=== PATIENT | female | born 1970 | race American Indian/Alaskan Native ===

== ENCOUNTER 2016-12-01 11:31 | Emergency (ER) | payer SELFPAY ==
--- NOTE | 2016-12-01 12:03 | Emergency Department Report ---
Chief Complaint: High BP Stated Complaint: DIZZY,BLURRED,TINGLING Time Seen by Provider: 12/01/16 11:58 - HPI History of Present Illness: 36-year-old female presents to ED complaining elevated blood pressure, dizziness , 2 days. She denies fever/chills/nausea/vomiting - ROS Review of Systems: As noted in HPI - Exam Vital Signs: Vital Signs 12/01/16 11:52 Temperature 98.4 F Pulse Rate 85 Respiratory 20 Rate Blood Pressure 162/102 O2 Sat by Pulse 100 Oximetry Physical Exam: GENERAL: Alert and oriented x3, no apparent distress, Normal Gait, atraumatic. LUNGS: Symetrical with respiration, No wheezing, no rales or crackles, CTAB. HEART: S1, S2 present, regular rate and rhythm without murmur, no rubs, no gallops. Non tender to palpation ABDOMEN: No organomegaly was noted,Positive bowel sounds, soft, and non- distended. . Nontender to palpation on all Quadrants, NO CVA tenderness. SKIN: Warm and dry, No lesions, No ulceration or induration present. MSE screening note: Focused history and physical exam performed. Due to findings the following was ordered: ED Medical Decision Making - Medical Decision Making Labs ordered. Patient's recent physician. Clonidine 0.1 ordered. Patient to the monitored in [facility] waiting area. ED Disposition for MSE Condition: Stable
[2016-12-01] MEDS ORDERED: TYLENOL PO ONE (12:05)
[2016-12-01] MEDS ORDERED: CATAPRES PO ONE (12:05)
[2016-12-01 13:20] LABS: Basophils % (Auto) 0.6 % (0.0-1.8); Eosinophils % (Auto) 1.1 % (0.0-4.3); Hematocrit 40.4 % (30.3-42.9); Hemoglobin 13.1 gm/dl (10.1-14.3); Mean Corpuscular HGB Conc 33 % (30-34); Mean Corpuscular Hemoglobin 30 pg (28-32); Mean Corpuscular Volume 92 fl (79-97); Platelet Count 360 K/mm3 (140-440); Red Cell Distribution Width 14.2 % (13.2-15.2); White Blood Count 11.8 K/mm3 (4.5-11.0)
[2016-12-01 13:26] LABS: Anion Gap 18 mmol/L; BUN/Creatinine Ratio 11.25; Blood Urea Nitrogen 9 mg/dL (7-17); Calcium 8.8 mg/dL (8.4-10.2); Carbon Dioxide 24 mmol/L (22-30); Chloride 104.6 mmol/L (98-107); Glucose 107 mg/dL (65-100); Potassium 4.7 mmol/L (3.6-5.0); Sodium 142 mmol/L (137-145)
[2016-12-01 13:31] LABS: INR 0.98 (0.87-1.13)
[2016-12-01 13:32] LABS: Partial Thromboplastin Time 28.2 Sec. (24.2-36.6)
[2016-12-01] MEDS ORDERED: MAGNESIUM SULFATE 2GM/50ML 2 GM/50 ML BAG IV ONE (17:31)
[2016-12-01] MEDS ORDERED: BENADRYL IV ONE (17:31)
[2016-12-01] MEDS ORDERED: FIORICET PO ONE (17:31)
[2016-12-01] MEDS ORDERED: REGLAN IV ONE (17:31)
--- NOTE | 2016-12-01 17:33 | Emergency Department Report ---
ED General Adult HPI - General Chief complaint: High BP Stated complaint: DIZZY,BLURRED,TINGLING Time Seen by Provider: 12/01/16 11:58 Source: patient, RN notes reviewed Mode of arrival: Ambulatory Limitations: No Limitations - History of Present Illness Initial comments: This is a 46-year-old female. She is previously unknown to me. She does not have a local primary care doctor. Past medical history includes rheumatoid arthritis. She may have a past medical history of hypertension but she is not certain. The patient presents to the ER today with a complaint of headache. The headache is global, throbbing and achy. It started over the weekend. It is not sudden or thunderclap in nature. Does not reach maximal intensity within an hour. Patient reports one to 2 headaches per month. She also complains of nonspecific dizziness which she cannot further clarify. She also complains of nonspecific binocular blurry vision over the weekend, which has since resolved. There is no weakness or numbness. There is no chest pain or shortness of breath. There is no ataxia. The patient thinks that she may have a history of hypertension, but is not certain. There is no loss of vision. -: Gradual Location: head Severity scale (0 -10): 10 Quality: aching Consistency: intermittent Improves with: none Worsens with: none Associated Symptoms: headaches, loss of appetite. denies: confusion, chest pain , cough, diaphoresis, fever/chills, malaise, nausea/vomiting, shortness of breath, syncope, weakness - Related Data Previous Rx's Medication Instructions Recorded Last Taken Type Ibuprofen [Motrin] 600 mg PO Q8H PRN #30 tablet 12/01/16 Unknown Rx Allergies Allergy/AdvReac Type Severity Reaction Status Date / Time No Known Allergies Allergy Unverified 12/01/16 11:56 ED Review of Systems ROS: Stated complaint: DIZZY,BLURRED,TINGLING Other details as noted in HPI Constitutional: denies: fever Eyes: vision change. denies: eye discharge ENT: denies: throat pain Respiratory: denies: cough Cardiovascular: denies: chest pain Gastrointestinal: denies: abdominal pain Genitourinary: denies: urgency, dysuria, discharge Musculoskeletal: denies: back pain, joint swelling, arthralgia Skin: denies: rash, lesions Neurological: headache. denies: weakness, paresthesias, abnormal gait, vertigo ED Past Medical Hx - Past Medical History Previous Medical History?: Yes Hx Hypertension: Yes Hx Asthma: Yes - Surgical History Past Surgical History?: Yes - Social History Smoking Status: Current Every Day Smoker Substance Use Type: None - Medications Home Medications: Home Medications Medication Instructions Recorded Confirmed Last Taken Type Ibuprofen [Motrin] 600 mg PO Q8H PRN #30 tablet 12/01/16 Unknown Rx ED Physical Exam - General Limitations: No Limitations General appearance: alert, in no apparent distress - Head Head exam: Present: atraumatic, normocephalic - Eye Eye exam: Present: normal appearance, PERRL, EOMI, other (visual acuity intact to finger counting, color perception, reading at a close distance). Absent: nystagmus - ENT ENT exam: Present: normal exam, normal orophraynx, mucous membranes moist, normal external ear exam - Neck Neck exam: Present: normal inspection, full ROM. Absent: tenderness, meningismus - Respiratory Respiratory exam: Present: normal lung sounds bilaterally. Absent: respiratory distress, wheezes, rales, rhonchi, stridor, chest wall tenderness, accessory muscle use, decreased breath sounds, prolonged expiratory - Cardiovascular Cardiovascular Exam: Present: regular rate, normal rhythm, normal heart sounds. Absent: bradycardia, tachycardia, irregular rhythm, systolic murmur, diastolic murmur, rubs, gallop - GI/Abdominal GI/Abdominal exam: Present: soft, normal bowel sounds. Absent: distended, tenderness, guarding, rebound, rigid, pulsatile mass - Extremities Exam Extremities exam: Present: normal inspection, full ROM, normal capillary refill. Absent: tenderness, pedal edema, joint swelling, calf tenderness - Back Exam Back exam: Present: normal inspection, full ROM. Absent: tenderness, CVA tenderness (R), CVA tenderness (L), muscle spasm, paraspinal tenderness, vertebral tenderness - Neurological Exam Neurological exam: Present: alert, oriented X3, normal gait (normal gait. Normal tandem gait. Negative Romberg examination. Negative pronator drift. Normal [id number].), other (Extraocular movements intact. Tongue midline. No facial droop. Facial sensation intact to light touch in the V1, V2, V3 distribution bilaterally. 5 and 5 strength in 4 extremities.. Sensation is intact to light touch in 4 extremities.). Absent: motor sensory deficit - Psychiatric Psychiatric exam: Present: normal affect, normal mood - Skin Skin exam: Present: warm, dry, intact, normal color. Absent: rash ED Course Vital Signs 12/01/16 12/01/16 12/01/16 11:52 12:43 16:30 Temperature 98.4 F Pulse Rate 85 80 Respiratory 20 20 18 Rate Blood Pressure 162/102 Blood Pressure 122/70 [Right] O2 Sat by Pulse 100 96 Oximetry ED Medical Decision Making - Lab Data Result diagrams: 12/01/16 12:44 12/01/16 12:44 Vital Signs 12/01/16 12/01/16 12/01/16 11:52 12:43 16:30 Temperature 98.4 F Pulse Rate 85 80 Respiratory 20 20 18 Rate Blood Pressure 162/102 Blood Pressure 122/70 [Right] O2 Sat by Pulse 100 96 Oximetry Lab Results 12/01/16 12/01/16 12/01/16 Range/Units 12:44 12:44 12:44 WBC 11.8 H (4.5-11.0) K/mm3 RBC 4.40 (3.65-5.03) M/mm3 Hgb 13.1 (10.1-14.3) gm/dl Hct 40.4 (30.3-42.9) % MCV 92 (79-97) fl MCH 30 (28-32) pg MCHC 33 (30-34) % RDW 14.2 (13.2-15.2) % Plt Count 360 (140-440) K/mm3 Lymph % (Auto) 23.3 (13.4-35.0) % [place] % (Auto) 9.8 H (0.0-7.3) % Eos % (Auto) 1.1 (0.0-4.3) % Baso % (Auto) 0.6 (0.0-1.8) % Lymph # 2.7 (1.2-5.4) K/mm3 [place] # 1.2 H (0.0-0.8) K/mm3 Eos # 0.1 (0.0-0.4) K/mm3 Baso # 0.1 (0.0-0.1) K/mm3 Seg Neutrophils % 65.2 (40.0-70.0) % Seg Neutrophils # 7.7 (1.8-7.7) K/mm3 PT 13.5 (12.2-14.9) Sec. INR 0.98 (0.87-1.13) APTT 28.2 (24.2-36.6) Sec. Sodium (137-145) mmol/L Potassium (3.6-5.0) mmol/L Chloride (98-107) mmol/L Carbon Dioxide (22-30) mmol/L Anion Gap mmol/L BUN (7-17) mg/dL Creatinine (0.7-1.2) mg/dL Estimated GFR ml/min BUN/Creatinine Ratio % Glucose (65-100) mg/dL Calcium (8.4-10.2) mg/dL Troponin T (0.00-0.029) ng/mL HCG, Qual Negative (Negative) 12/01/16 12/01/16 Range/Units 12:44 17:05 WBC (4.5-11.0) K/mm3 RBC (3.65-5.03) M/mm3 Hgb (10.1-14.3) gm/dl Hct (30.3-42.9) % MCV (79-97) fl MCH (28-32) pg MCHC (30-34) % RDW (13.2-15.2) % Plt Count (140-440) K/mm3 Lymph % (Auto) (13.4-35.0) % [place] % (Auto) (0.0-7.3) % Eos % (Auto) (0.0-4.3) % Baso % (Auto) (0.0-1.8) % Lymph # (1.2-5.4) K/mm3 [place] # (0.0-0.8) K/mm3 Eos # (0.0-0.4) K/mm3 Baso # (0.0-0.1) K/mm3 Seg Neutrophils % (40.0-70.0) % Seg Neutrophils # (1.8-7.7) K/mm3 PT (12.2-14.9) Sec. INR (0.87-1.13) APTT (24.2-36.6) Sec. Sodium 142 (137-145) mmol/L Potassium 4.7 (3.6-5.0) mmol/L Chloride 104.6 (98-107) mmol/L Carbon Dioxide 24 (22-30) mmol/L Anion Gap 18 mmol/L BUN 9 (7-17) mg/dL Creatinine 0.8 (0.7-1.2) mg/dL Estimated GFR > 60 ml/min BUN/Creatinine Ratio 11.25 % Glucose 107 H (65-100) mg/dL Calcium 8.8 (8.4-10.2) mg/dL Troponin T < 0.010 < 0.010 (0.00-0.029) ng/mL HCG, Qual (Negative) - EKG Data -: EKG Interpreted by Me EKG shows normal: sinus rhythm, axis - EKG Data When compared to previous EKG there are: previous EKG unavailable 12/01/16 19:54 normal sinus, 83 bpm, normal axis, QTC 470 ms, incomplete right bundle branch block, abnormal EKG, not morphologically consistent with stemi - Radiology Data Radiology results: report reviewed, image reviewed Noncontrast CT scan of the brain is negative. CT angiogram of the head and neck negative - Medical Decision Making Differential diagnosis: Migraine headache, cluster headache, tension headache, incidental hypertension/elevated blood pressure Assessment and plan: 46-year-old female with complaint of headache, hypertension , dizziness. She is afebrile, with reassuring vital signs with the exception of hypertension. She has a GCS of 15, with an NIH score of 0, no visual field cuts, has a visual acuity of 20/20, and walks with a steady gait. A noncontrast CT scan of the brain was negative, and a CT and exam of the head and neck were also negative. The patient's history is not consistent with subarachnoid hemorrhage. She felt much improved after pain medication. She was observed in the ER for a prolonged. At time without decompensation, and reported that she was feeling much better after her symptomatically therapy. She is going to follow up with outpatient primary care doctor, and I have given her numerous names, phone numbers, addresses. Critical care attestation.: If time is entered above; I have spent that time in minutes in the direct care of this critically ill patient, excluding procedure time. ED Disposition Clinical Impression: Headache, Elevated blood pressure reading Disposition: TO HOME OR SELFCARE Is pt being admited?: No Does the pt Need Aspirin: No Condition: Stable Instructions: Acute Headache (ED), Hypertension (ED) Additional Instructions: Take the pain medication as directed. Follow-up with her outpatient primary care doctor within the next 2-3 weeks. Please note that hypertension/elevated blood pressure may cause complications such as stroke, heart attack, disability , , paralysis, loss of quality of life. Therefore, follow up with any listed primary care doctors within the recommended timeframe. Return to the ER right away with new pain, worsened pain , migration of pain, fevers, chills, confusion, chest pain, intractable nausea or vomiting, inability to tolerate liquid feeds. Prescriptions: Ibuprofen [Motrin] 600 mg PO Q8H PRN #30 tablet PRN Reason: Pain Referrals: PRIMARY CAREMD [Primary Care Provider] - 3-5 Days AMINATA YORK MD [Staff Physician] - 3-5 Days BAKARI NEAL MD [Staff Physician] - 3-5 Days
[2016-12-01 17:35] VITALS: BP 122/70
[2016-12-01] MEDS ORDERED: NACL ONE (17:57)
--- NOTE | 2016-12-01 19:01 | Cat Scan Report ---
FINAL REPORT EXAM: CT HEAD/BRAIN WO CON HISTORY: peña htn resolved binocular blurry vision TECHNIQUE: Noncontrast serial axial images from skull base to vertex. PRIORS: None. FINDINGS: There is no mass effect or midline shift. There are no abnormal intra or extra-axial fluid collections. Cortical sulci and lateral ventricles are within normal limits for size and configuration. Basilar cisterns are patent. No acute intracranial hemorrhage is identified. Atherosclerotic calcifications are noted. Visualized paranasal sinuses and mastoid air cells are well aerated. No acute osseous abnormality is identified. IMPRESSION: 1. No abnormal mass or acute intracranial hemorrhage is identified.
--- NOTE | 2016-12-01 19:15 | Cat Scan Report ---
FINAL REPORT EXAM: CT ANGIO HEAD HISTORY: peña htn resolved binocular blurry vision TECHNIQUE: Serial axial images through the head during intravenous administration of contrast with coronal, sagittal and oblique reconstruction PRIORS: Noncontrast head CT from 12/01/2016 FINDINGS: There is no mass effect or midline shift. Cortical sulci and lateral ventricles are normal in size and configuration. The basilar cisterns are patent. The vertebrobasilar system is patent. No focal stenotic lesion is identified. Posterior cerebral arteries are patent bilaterally. The distal internal carotid arteries, middle cerebral arteries and anterior cerebral arteries are patent bilaterally. Atherosclerotic changes are seen associated with the distal left internal carotid artery. IMPRESSION: 1. No major branch occlusion is identified.
--- NOTE | 2016-12-01 19:27 | Cat Scan Report ---
FINAL REPORT EXAM: CT ANGIO NECK HISTORY: peña htn resolved binocular blurry vision TECHNIQUE: Serial axial images through the neck during intravenous administration of contrast with coronal, sagittal and oblique reconstruction PRIORS: None. FINDINGS: No gross abnormality is seen in the visualized portion of the brain. Orbits appear normal and symmetric. Paranasal sinuses and mastoid air cells are well aerated. No acute osseous abnormality is identified. There is a left pleural effusion which is incompletely evaluated in this study. There is atelectasis in the dependent portion of lungs. Thyroid gland appears normal. Submandibular glands and parotid glands appear normal. The common carotid arteries and internal carotid arteries are widely patent bilaterally. No focal stenotic lesion is identified. The vertebral arteries are patent bilaterally. No focal stenotic lesion is identified. IMPRESSION: 1. There is not evidence of flow-limiting stenosis in the common carotid arteries or internal carotid arteries. 2. Left pleural effusion is noted. This is incompletely evaluated in this study.
[2016-12-01] MEDS ORDERED: TORADOL IV ONE (19:37)
== END 2016-12-01 20:37 | disposition home or self-care (01) ==
LOC: ED 11:31
DX: R51 Headache (principal); I10 Essential (primary) hypertension; J45.909 Unspecified asthma, uncomplicated; F17.200 Nicotine dependence, unspecified, uncomplicated
CPT/HCPCS: 36415; 70450; 70496; 70498; 80048; 84484; 84703; 85025; 85610; 85730; 93005; 93010; 96365; 96375; 99285; J1200; J2765; J2930; J3475; Q9967